=== PATIENT | male | born 1960 | race African-American/Black ===

== ENCOUNTER 2019-04-03 11:43 | Emergency (ER) | payer MEDICAID ==
[~2019-04-03] VITALS: Ht 182.9 cm; Wt 108.9 kg
[~2019-04-03 11:43] MED LIST: ALPR1TAB2 PO; CARI-277 PO; OXY20CRT PO; TAM04C PO
[2019-04-03 13:01] VITALS: BP 147/84
== END 2019-04-03 13:44 | disposition home or self-care (01) ==
LOC: ER 11:43 → EDBD 11:43 → ER 13:44
DX: M25.562 Pain in left knee (principal); M25.511 Pain in right shoulder; J45.909 Unspecified asthma, uncomplicated; E78.5 Hyperlipidemia, unspecified; N18.9 Chronic kidney disease, unspecified; E66.9 Obesity, unspecified; Z88.0 Allergy status to penicillin; Z79.899 Other long term (current) drug therapy; Z86.73 Personal history of transient ischemic attack (TIA), and cerebral infarction without residual deficits; Z96.652 Presence of left artificial knee joint; Z87.891 Personal history of nicotine dependence; Z68.32 Body mass index [BMI] 32.0-32.9, adult
CPT/HCPCS: 73562

== ENCOUNTER 2023-08-10 12:04 | Inpatient (IN) | payer MEDICAID ==
[~2023-08-10] VITALS: Ht 182.9 cm; Wt 100.5 kg
[~2023-08-10 12:04] MED LIST changes: -TAM04C PO; +TAMS-35 PO
[2023-08-10 14:20] LABS: Basophils # (auto) 0.1 10 ^3/uL (0-0.2); Basophils % (auto) 0.6 % (0.0-2.0); Eosinophils # (auto) 0.1 10 ^3/uL (0-0.8); Hemoglobin 15.8 g/dL (13.5-17.5); Lymphocytes % (auto) 18.2 % (10.0-50.0); Mean Corpuscular Hemoglobin 30.4 pg (28.0-32.0); Mean Corpuscular Hgb Conc. 32.2 g/dL (32.0-36.0); Mean Corpuscular Volume 94.6 fL (80.0-100.0); Monocytes # (auto) 0.7 10 ^3/uL (0-1.3); Monocytes % (auto) 6.3 % (0.0-12.0); Neutrophils # (auto) 8.1 10 ^3/uL (1.6-8.6); Neutrophils % (auto) 73.9 % (37.0-80.0); Nucleated Red Blood Cells % 0.1 %; Red Blood Cells 5.18 10^6/uL (4.5-5.90); Red Cell Distribution Width 15.7 % (11.8-14.3)
[2023-08-10 14:22] LABS: COVID19 ANTIGEN SOFIA FIA NEGATIVE (NEGATIVE); Rapid Influenza A Negative (Negative); Rapid Influenza B Negative (Negative)
[2023-08-10 14:35] LABS: INR 1.02 (0.9-1.15); Partial Thromboplastin Time 29.1 SEC (24.5-34.5); Prothrombin Time 10.7 sec (9.3-11.8)
[2023-08-10 14:45] LABS: Alanine Aminotransferase 14 U/L (7-40); Albumin 3.9 g/dL (3.2-4.8); Alkaline Phosphatase 84 U/L (46-116); Anion Gap 4 (5-15); BUN/Creatinine Ratio 11.5 (10.0-20.0); Blood Urea Nitrogen 18 mg/dL (9-23); Carbon Dioxide 27 mmol/L (20-30); Chloride 107 mmol/L (98-107); Glucose 78 mg/dL (74-106); Magnesium 2.1 mg/dL (1.6-2.6); Potassium 5.5 mmol/L (3.5-5.1); Sodium 138 mmol/L (136-145)
[2023-08-10 14:46] LABS: Aspartate Aminotransferase 10 U/L (13-40); Bilirubin, Total 0.4 mg/dL (0.2-1.0); Total Protein 6.4 g/dL (5.7-8.2)
[2023-08-10] MEDS ORDERED: traMADol HCL 50 MG TAB PO ONE (18:30)
[2023-08-10] MEDS ORDERED: SODIUM BICARBONATE 8.4 % INJ 50ML VIAL IV ONE (18:45)
[2023-08-10] MEDS ORDERED: CALCIUM GLUC 1,000mg/50ml-NS 50 ML IV ONE (18:45)
[2023-08-10 20:10] VITALS: PULSE 82; RESP 18; O2SAT 97
[2023-08-10] MEDS ORDERED: SODIUM CHLORIDE 0.9% 1,000 ML IV ONE (20:30)
[2023-08-10] MEDS ORDERED: DOCUSATE SOD 100 MG CAP PO PRN (20:30)
[2023-08-10] MEDS ORDERED: NITROGLYCERIN 0.4 MG SL TAB SL PRN (20:30)
[2023-08-10] MEDS ORDERED: MORPHINE SULFATE INJ 2 MG/ml SYRG IV PRN (20:30)
[2023-08-10] MEDS ORDERED: ONDANSETRON HCL 4 MG/2 ML VIAL IV PRN (20:30)
[2023-08-10 21:00] VITALS: BP 131/79; PULSE 82; RESP 18; TEMP 98.5; O2SAT 97
[2023-08-10] MEDS: IPRATROPIUM BROM 0.5 MG/2.5ML INH SOL NEB SCH (22:03)
[2023-08-10] MEDS: ALBUTEROL SULF 2.5 MG/0.5ML(0.5%) NEB SOLN NEB SCH (22:03)
[2023-08-10 22:15] VITALS: PULSE 105; RESP 18; O2SAT 97
[2023-08-11] VITALS (13 sets, daily range): BP systolic 138–160; BP diastolic 72–94; PULSE 70–97; RESP 14–20; TEMP 97.4–98.1; O2SAT 0–100
[2023-08-11 04:00] LABS: Urine Bacteria NONE SEEN /hpf (None Seen); Urine Blood TRACE /uL (Negative); Urine Clarity HAZY (Clear); Urine Color Yellow (Yellow); Urine Mucus FEW (None Seen); Urine Protein, UAD TRACE (Negative); Urine Specific Gravity 1.019 (1.001-1.035); Urine Urobilinogen Normal (Negative); Urine WBC 314 /hpf (0 - 3); Urine pH 6.5 (5.0-8.0)
[2023-08-11 04:07] LABS: Amphetamine Screen, Urine Neg (NEGATIVE); Barbiturate Scree,Urine Neg (NEGATIVE); Benzodiazephine Screen, Urine Neg (NEGATIVE); Cannabinoid Screen, Urine Neg (NEGATIVE); Cocaine Screen, Urine Neg (NEGATIVE); Opiate Scree,Urine Neg (NEGATIVE); Phencyclidine Screen, Urine Neg (NEGATIVE)
[2023-08-11 06:07] LABS: Basophils # (auto) 0.1 10 ^3/uL (0-0.2); Eosinophils # (auto) 0.1 10 ^3/uL (0-0.8); Eosinophils % (auto) 1.4 % (0.0-7.0); Hematocrit 48.6 % (41.0-53.0); Hemoglobin 16.1 g/dL (13.5-17.5); Lymphocytes # (auto) 2.4 10 ^3/uL (0.4-5.4); Lymphocytes % (auto) 22.2 % (10.0-50.0); Mean Corpuscular Hemoglobin 31.1 pg (28.0-32.0); Monocytes # (auto) 0.8 10 ^3/uL (0-1.3); Monocytes % (auto) 7.6 % (0.0-12.0); Neutrophils # (auto) 7.2 10 ^3/uL (1.6-8.6); Neutrophils % (auto) 67.8 % (37.0-80.0); Red Blood Cells 5.17 10^6/uL (4.5-5.90); Red Cell Distribution Width 16.2 % (11.8-14.3); White Blood Cell 10.6 10^3/uL (4.4-10.8)
[2023-08-11 06:25] LABS: Alanine Aminotransferase 13 U/L (7-40); Albumin 4.2 g/dL (3.2-4.8); Alkaline Phosphatase 89 U/L (46-116); Anion Gap 6 (5-15); Aspartate Aminotransferase 12 U/L (13-40); BUN/Creatinine Ratio 9.1 (10.0-20.0); Blood Urea Nitrogen 13 mg/dL (9-23); Calcium 9.1 mg/dL (8.5-10.1); Carbon Dioxide 25 mmol/L (20-30); Chloride 108 mmol/L (98-107); Glucose 79 mg/dL (74-106); Sodium 139 mmol/L (136-145)
[2023-08-11 06:26] LABS: Bilirubin, Total 0.4 mg/dL (0.2-1.0)
[2023-08-11] MEDS: ALBUTEROL SULF 2.5 MG/0.5ML(0.5%) NEB SOLN NEB SCH ×5 (07:03→22:00)
[2023-08-11] MEDS: IPRATROPIUM BROM 0.5 MG/2.5ML INH SOL NEB SCH ×5 (07:03→22:00)
[2023-08-11] MEDS ORDERED: ZOLP10TA PO (08:05)
[2023-08-11] MEDS ORDERED: ALBU2TAB11 IN (08:05)
[2023-08-11] MEDS ORDERED: PERCOT PO (08:05)
[2023-08-11] MEDS ORDERED: cefTRIAXone 1GM/50ML D5W 50 ML IV ONE (13:00)
[2023-08-11] MEDS ORDERED: cloNIDine HCL 0.1 MG TAB PO PRN (15:00)
[2023-08-11] MEDS: ACETAMINOPHEN 325 MG TAB PO PRN (21:16)
[2023-08-12] VITALS (9 sets, daily range): BP systolic 108–113; BP diastolic 58–72; PULSE 102–120; RESP 18–22; TEMP 97.3–99.3; O2SAT 0–100
[2023-08-12] MEDS ORDERED: TEMAZEPAM 15 MG CAP PO ONE (01:30)
[2023-08-12] MEDS: ALBUTEROL SULF 2.5 MG/0.5ML(0.5%) NEB SOLN NEB SCH ×5 (06:00→22:00)
[2023-08-12] MEDS: IPRATROPIUM BROM 0.5 MG/2.5ML INH SOL NEB SCH ×5 (06:00→22:00)
[2023-08-12] MEDS: ACETAMINOPHEN 325 MG TAB PO PRN ×3 (06:44→20:09)
[2023-08-12] MEDS ORDERED: cefTRIAXone 1GM/50ML D5W 50 ML IV SCH (09:00)
[2023-08-12] MEDS ORDERED: VANCOMYCIN 1GM/200ML 250 ML IV SCH (10:45)
[2023-08-12] MEDS ORDERED: VANCOMYCIN PER PHARMACY 0 MG IV SCH (10:45)
[2023-08-12] MEDS ORDERED: VANCOMYCIN 1GM/200ML 250 ML IV ONE (10:45)
[2023-08-12] MEDS ORDERED: levoFLOXacin 500MG 100 ML IV ONE (11:00)
[2023-08-13] VITALS (20 sets, daily range): BP systolic 94–104; BP diastolic 47–65; PULSE 93–110; RESP 16–20; TEMP 97.9–98.7; O2SAT 96–100
[2023-08-13] MEDS: ACETAMINOPHEN 325 MG TAB PO PRN ×2 (01:35→08:12)
[2023-08-13 06:22] LABS: Alanine Aminotransferase 21 U/L (7-40); Albumin 3.8 g/dL (3.2-4.8); Alkaline Phosphatase 77 U/L (46-116); Anion Gap 11 (5-15); Aspartate Aminotransferase 31 U/L (13-40); BUN/Creatinine Ratio 7.1 (10.0-20.0); Calcium 8.8 mg/dL (8.5-10.1); Carbon Dioxide 20 mmol/L (20-30); Chloride 106 mmol/L (98-107); Glucose 74 mg/dL (74-106); Potassium 4.3 mmol/L (3.5-5.1); Sodium 137 mmol/L (136-145)
[2023-08-13 06:23] LABS: Bilirubin, Total 0.5 mg/dL (0.2-1.0); Total Protein 6.5 g/dL (5.7-8.2)
[2023-08-13 06:31] LABS: Blood Urea Nitrogen 26 mg/dL (9-23)
[2023-08-13] MEDS: ALBUTEROL SULF 2.5 MG/0.5ML(0.5%) NEB SOLN NEB SCH ×5 (06:38→23:10)
[2023-08-13] MEDS: IPRATROPIUM BROM 0.5 MG/2.5ML INH SOL NEB SCH ×5 (06:38→23:10)
[2023-08-13] MEDS: levoFLOXacin 500MG 100 ML IV SCH (08:12)
[2023-08-13] MEDS ORDERED: LOPERAMIDE HCL 2 MG CAP/TAB ONE (11:04)
[2023-08-13] MEDS: LOPERAMIDE HCL 2 MG CAP/TAB PO PRN (11:05)
[2023-08-13] MEDS: SODIUM CHLORIDE 0.9% 1,000 ML IV SCH ×2 (11:06→17:25)
[2023-08-13] MEDS ORDERED: VANCOMYCIN 1GM/200ML 250 ML IV ONE (12:00)
[2023-08-14] VITALS (15 sets, daily range): BP systolic 104–150; BP diastolic 62–92; PULSE 57–115; RESP 16–19; TEMP 97.6–98.4; O2SAT 95–100
[2023-08-14] MEDS: SODIUM CHLORIDE 0.9% 1,000 ML IV SCH ×5 (00:11→21:00)
[2023-08-14 06:23] LABS: Alanine Aminotransferase 18 U/L (7-40); Albumin 3.2 g/dL (3.2-4.8); Alkaline Phosphatase 71 U/L (46-116); Anion Gap 11 (5-15); Aspartate Aminotransferase 21 U/L (13-40); BUN/Creatinine Ratio 13.7 (10.0-20.0); Blood Urea Nitrogen 29 mg/dL (9-23); Carbon Dioxide 18 mmol/L (20-30); Chloride 108 mmol/L (98-107); Glucose 57 mg/dL (74-106); Potassium 3.6 mmol/L (3.5-5.1); Sodium 137 mmol/L (136-145)
[2023-08-14 06:24] LABS: Bilirubin, Total 0.3 mg/dL (0.2-1.0); Total Protein 5.4 g/dL (5.7-8.2)
[2023-08-14] MEDS: IPRATROPIUM BROM 0.5 MG/2.5ML INH SOL NEB SCH ×6 (06:41→22:04)
[2023-08-14] MEDS: ALBUTEROL SULF 2.5 MG/0.5ML(0.5%) NEB SOLN NEB SCH ×6 (06:41→22:04)
[2023-08-14] MEDS ORDERED: VANCOMYCIN 1GM/200ML 250 ML IV ONE ×2 (09:00→11:20)
[2023-08-14] MEDS ORDERED: levoFLOXacin 500MG 100 ML IV ONE (09:57)
[2023-08-14] MEDS: levoFLOXacin 500MG 100 ML IV SCH (10:04)
[2023-08-14] MEDS ORDERED: ACETAMINOPHEN 325 MG TAB PO ONE (13:30)
[2023-08-14] MEDS ORDERED: LOPERAMIDE HCL 2 MG CAP/TAB ONE (13:34)
[2023-08-14] MEDS: LOPERAMIDE HCL 2 MG CAP/TAB PO PRN (13:35)
[2023-08-14] MEDS: ACETAMINOPHEN 325 MG TAB PO PRN ×2 (13:35→21:28)
[2023-08-15] VITALS (9 sets, daily range): BP systolic 102–118; BP diastolic 44–94; PULSE 94–112; RESP 16–20; TEMP 97.8–99.3; O2SAT 94–100
[2023-08-15] MEDS: SODIUM CHLORIDE 0.9% 1,000 ML IV SCH (05:51)
[2023-08-15 06:52] LABS: Alanine Aminotransferase 14 U/L (7-40); Albumin 3.4 g/dL (3.2-4.8); Alkaline Phosphatase 74 U/L (46-116); Anion Gap 6 (5-15); Aspartate Aminotransferase 14 U/L (13-40); BUN/Creatinine Ratio 8.1 (10.0-20.0); Bilirubin, Total 0.4 mg/dL (0.2-1.0); Blood Urea Nitrogen 13 mg/dL (9-23); Calcium 8.3 mg/dL (8.7-10.4); Carbon Dioxide 22 mmol/L (20-30); Chloride 110 mmol/L (98-107); Glucose 68 mg/dL (74-106); Potassium 4.2 mmol/L (3.5-5.1); Sodium 138 mmol/L (136-145)
[2023-08-15] MEDS: ALBUTEROL SULF 2.5 MG/0.5ML(0.5%) NEB SOLN NEB SCH ×2 (07:03→09:36)
[2023-08-15] MEDS: IPRATROPIUM BROM 0.5 MG/2.5ML INH SOL NEB SCH ×2 (07:03→09:36)
[2023-08-15] MEDS: ACETAMINOPHEN 325 MG TAB PO PRN (07:23)
[2023-08-15] MEDS ORDERED: VANCOMYCIN 1GM/200ML 250 ML IV SCH (09:00)
[2023-08-15] MEDS: levoFLOXacin 500MG 100 ML IV SCH (10:01)
[2023-08-15] MEDS ORDERED: TRAM50TA2 PO (11:39)
[2023-08-15] MEDS ORDERED: LEVO500T91 PO (11:39)
== END 2023-08-15 13:33 | disposition home or self-care (01) | DRG 720 ==
LOC: EDUNIT# 12:04 → EDBD 12:04 → ER 12:04 → TELE 20:52 → UNDOADMIN 20:52 → OVERFLOW 21:02 → WEST WING 08-11 07:48
PROVIDERS: ADMIT Nurse Practitioner Family; ATTEND Family Medicine
DX: A41.1 Sepsis due to other specified staphylococcus (principal); N17.0 Acute kidney failure with tubular necrosis; I50.9 Heart failure, unspecified; J45.901 Unspecified asthma with (acute) exacerbation; E86.0 Dehydration; S70.02XA Contusion of left hip, initial encounter; E66.9 Obesity, unspecified; W18.30XA Fall on same level, unspecified, initial encounter; E87.5 Hyperkalemia; N18.9 Chronic kidney disease, unspecified; G89.29 Other chronic pain; E78.5 Hyperlipidemia, unspecified; N13.8 Other obstructive and reflux uropathy; R33.8 Other retention of urine; M54.50 Low back pain, unspecified; N13.6 Pyonephrosis; R55 Syncope and collapse; Z20.822 Contact with and (suspected) exposure to COVID-19; F17.200 Nicotine dependence, unspecified, uncomplicated; N40.1 Benign prostatic hyperplasia with lower urinary tract symptoms; R19.7 Diarrhea, unspecified; Z96.652 Presence of left artificial knee joint; Z87.440 Personal history of urinary (tract) infections; Z88.0 Allergy status to penicillin; Z86.73 Personal history of transient ischemic attack (TIA), and cerebral infarction without residual deficits; Z68.29 Body mass index [BMI] 29.0-29.9, adult; Z82.49 Family history of ischemic heart disease and other diseases of the circulatory system; Z91.81 History of falling; Z71.6 Tobacco abuse counseling; Y93.89 Activity, other specified; Y92.098 Other place in other non-institutional residence as the place of occurrence of the external cause; Y99.8 Other external cause status
CPT/HCPCS: 36415; 70450; 71045; 73560; 73700; 74176; 76775; 80053; 80202; 80307; 81001; 82550; 82565; 83735; 83880; 84132; 84484; 85025; 85610; 85730; 87040; 87077; 87086; 87186; 87426; 87804; 93005; 94640; 97163; G0378; J1956